=== PATIENT | female | born 1970 | race Caucasian/White ===

== ENCOUNTER 2023-04-02 07:41 | Emergency (ER) | payer BC, OTHER ==
[~2023-04-02] VITALS: Ht 162 cm; Wt 80.0 kg
[~2023-04-02 07:41] MED LIST: LEVOTHYROXINE; MDR10T
[2023-04-02] MEDS ORDERED: ONDANSETRON 4 MG ORAL DISSOLVE TABLET PO STA (07:59)
[2023-04-02] MEDS ORDERED: Tetanus/Diphtheria/Pertussis (Acell) ADULT Vaccine 0.5 ML IM ONE (08:00)
[2023-04-02] MEDS ORDERED: fentaNYL INJECTION 100 MCG/2 ML VIAL IM ONE (08:00)
[2023-04-02] MEDS ORDERED: LIDOCAINE PF 2% 5 ML VIAL INH ONE (08:00)
--- NOTE | 2023-04-02 08:41 | ED Integumentary General ---
General Chief Complaint: Skin/Wound Problems Stated Complaint: ABSCESS Nursing Triage Note: PT REPORTS SHE HAS A SORE ON HER LEFT LOWER BUTTOCKS. SHE REPORTS IT IS PAINFUL AND HARD TO SIT AND WALK. SHE WENT TO THE CLINIC LAST WEEK AND WAS GIVEN TOPICAL BACTROBAN. Source: patient (CURTIS ODONNELL MD) History of Present Illness Date Seen by Provider: Apr 02, 2023 Time Seen by Provider: 07:50 Initial Comments 52-year-old female patient with remote history of colon cancer without current medical problem presented POV with complaining of painful area in left gluteal area for the last 11 days. Patient was seen at urgent care 7 days and treated with Bactroban and without improvement of her condition and was seen at the same urgent care again 3 days ago and treated with oral antibiotic. Patient complaining of increasing pain and enlargement of the affected area without drainage of pus. Patient denies fever and chills, injury or injection at the gluteal area, history of MRSA. Patient rated her pain as a severe pain that getting worse with walking and sitting on left side. Patient rated her pain 10/10 at arrival to ER. (CURTIS ODONNELL MD) Allergies and Home Medications Allergies Coded Allergies: No Known Drug Allergies (Verified Allergy, Unknown, 12/20/07) Patient Home Medication List Home Medication List Reviewed: Yes (CURTIS ODONNELL MD) Amoxicillin/Potassium Clav (Amox Tr-K Clv 875-125 mg Tab) 875 Mg-125 Mg Tablet, 1 EACH PO BID Prescribed by: MAKENNA KRUEGER on 04/02/23 1149 Hydrocodone/Acetaminophen (Hydrocodone-Acetamin 5-325 mg) 5 Mg-325 Mg Tablet, 1 TAB PO Q6H PRN for PAIN-MODERATE (5-7) Prescribed by: MAKENNA KRUEGER on 04/02/23 1150 Medroxyprogesterone Acetate (Provera) 10 Mg Tab, (Reported) Entered as Reported by: SHAWN WELDON on 12/20/07 165 [Levothyroxine] , (Reported) Entered as Reported by: SHAWN WELDON on 12/20/071654 Review of Systems Review of Systems Constitutional: no symptoms reported EENTM: no symptoms reported Respiratory: no symptoms reported Cardiovascular: no symptoms reported Gastrointestinal: no symptoms reported Genitourinary: no symptoms reported Musculoskeletal: see HPI Skin: see HPI Psychiatric/Neurological: No Symptoms Reported Endocrine: No Symptoms Reported Hematologic/Lymphatic: No Symptoms Reported (CURTIS ODONNELL MD) All Other Systems Reviewed Negative Unless Noted: Yes (CURTIS ODONNELL MD) Past Klcsiok-Hzkdeo-Uqqgcx Hx Patient Social History Tobacco Use?: No Use of E-Cig and/or Vaping dev: No Substance use?: No Alcohol Use?: No Pt feels they are or have been: No (CURTIS ODONNELL MD) Immunizations Up To Date Influenza Vaccine Up-to-Date: No; Not Current (CURTIS ODONNELL MD) Past Medical History Surgery/Hospitalization HX: HX OF COLON CANCER Reproductive Disorders: No (CURTIS ODONNELL MD) Physical Exam Vital Signs Vital Signs - First Documented 04/02/23 07:46 Temp 36.8 Pulse 108 Resp 18 B/P (MAP) 128/82 (97) Pulse Ox 99 O2 Delivery Room Air (MAKENNA KRUEGER MD) Vital Signs Capillary Refill : Less Than 3 Seconds (CURTIS ODONNELL MD) General Appearance: mild distress, obese HEENT: PERRL/EOMI, normal ENT inspection Neck: non-tender, full range of motion Cardiovascular: normal peripheral pulses, regular rate, rhythm, no edema Respiratory: chest non-tender, lungs clear, normal breath sounds, no respiratory distress Gastrointestinal: non tender, soft Back: no CVA tenderness Extremities: no pedal edema Neurologic/Psychiatric: alert, oriented x 3 Skin: other (10 x 10 cm area of erythema in the mid left gluteal area with central fluctuation and severe tenderness) Skin Problem Character: abscess (CURTIS ODONNELL MD) Progress/Results/Core Measures Results/Orders My Orders Orders - MAKENNA KRUEGER MD Wound Culture (04/02/23 11:16) (MAKENNA KRUEGER MD) Medications Given in ED Current Medications Medications Dose Ordered Sig/Sindi Route Start Time Stop Time Status Last Admin Dose Admin Diphtheria/ Tetanus/Acell Pertussis 0.5 ml ONCE ONCE IM 04/02/23 08:00 04/02/23 08:01 DC 04/02/23 08:10 0.5 ML Fentanyl Citrate 50 mcg ONCE ONCE IM 04/02/23 08:00 04/02/23 08:01 DC 04/02/23 08:09 50 MCG Lidocaine HCl 5 ml ONCE ONCE INH 04/02/23 08:00 04/02/23 08:01 DC 04/02/23 08:11 5 ML Lidocaine HCl 10 ml STK-MED ONCE .ROUTE 04/02/23 10:50 04/02/23 10:53 DC 04/02/23 11:00 10 ML (MAKENNA KRUEGER MD) Vital Signs/I&O 04/02/23 04/02/23 07:46 09:50 Temp 36.8 36.6 Pulse 108 98 Resp 18 18 B/P (MAP) 128/82 (97) 137/83 (101) Pulse Ox 99 97 O2 Delivery Room Air (MAKENNA KRUEGER MD) Blood Pressure Mean: 97 Progress Progress Note : Time: 08:30 Progress Note Patient with large left gluteal abscess for 11 days with 2 urgent care visits without drainage of the abscess. Patient had a large abscess with central fluctuation without drainage of pus. Patient informed about needs for drainage of abscess and fentanyl IM, Zofran sublingual, Adacel was given and then area of abscess was anesthetized with 5 mL of 2% lidocaine. After few minutes, I tried to clean the area of the abscess with normal saline but patient did not tolerate touching the area and stated she could not tolerating the procedure and did not want to go anymore with the procedure under local anesthesia. I c onsidered conscious sedation or transferring patient to [facility] for evaluation and treatment by the surgeon. At 0835 ER physician at [facility] was consulted and suggested to consult on-call surgeon or use ketamine. At 0841 on-call surgeon Dr. Boggs was consulted and recommended to transfer patient ER to ER for the procedure. At 0 846 ER physician at [facility] Dr Krueger was consulted and accepted ER to ER transfer. Patient informed about plan of care and needs for transfer and she decided to go POV but then she changed her plan and decided to go by ambulance. IV line was started. (CURTIS ODONNELL MD) Progress Note : Progress Note 4 0: Patient was seen by me on arrival to the ER here and I have reexamined her and find normal breath sounds with normal cardiac exam. Left buttock with 8 x 8 cm area of induration with 4 x 4 centimeter area of fluctuance did speak with the patient about potential for moderate sedation and we have asked Dr. Boggs to come see the patient in the ER. He did see the patient in the ER and elected to do local only with I&D. He did do I&D of the wound and large amount of pus obtained and culture obtained by him. See his note for details. Patient is currently doing better. We will give [place] 5/325 1 tab p.o. now and I will write prescription for that as well as Augmentin and he will see her in office on Wednesday and patient to have outpatient dressing change at the ER at [facility] this weekend and then as needed. Discharged home with return precautions. Patient verbalized understanding instructions and agreement with plan. (MAKENNA KRUEGER MD) Departure Communication (Admissions) Time/Spoke to Admitting Phy: 08:46 Dr. Bowen ER physician at [facility] was consulted and accepted transfer from ER to ER at 0846. Time/Spoke to Consulting Phy: 08:41 On-call surgeon Dr. Boggs was consulted at 0841 and recommended to transfer christiano madrigal to ER for taking care of the abscess. (CURTIS ODONNELL MD) Impression Primary Impression: Abscess of buttock, left Disposition: 30 STILL A PATIENT Condition: Unchanged Admissions Decision to Admit Reason: Admit from ER (General) Decision to Admit/Date: Apr 02, 2023 Time/Decision to Admit Time: 09:00 (CURTIS ODONNELL MD) Transfer Method of Transfer: EMS (CURTIS ODONNELL MD) Departure-Patient Inst. Decision time for Depature: 11:44 (CURTIS ODONNELL MD) Decision time for Depature: 11:44 (MAKENNA KRUEGER MD) Referrals: RUCHI BOGGS DO NO,LOCAL PHYSICIAN (PCP) Primary Care Physician Patient Instructions: Abscess Incision and Drainage, Skin Abscess Add. Discharge Instructions: All discharge instructions reviewed with patient and/or family. Voiced understanding. You may replace top dressing but keep packing in place. If this falls out then cleaned the wound twice daily with fresh water using a shower sprayer. Follow- up with the ER at [facility] for packing change this and then with Dr. Boggs on [place] at his office. Take medications as directed. Return for worse pain, swelling, fever, vomiting or other concerns as needed. If you are not taking the prescribed pain medicine then you may take Tylenol/acetaminophen 1000 mg every 6-8 hours as needed for pain. Do not take both at the same time as they both have acetaminophen in them. You may also take ibuprofen 600 mg every 8 hours as needed for pain with either the prescribed pain medicine or with Tylenol/acetaminophen to improve pain control. Scripts Amoxicillin/Potassium Clav (Amox Tr-K Clv 875-125 mg Tab) 875 Mg-125 Mg Tablet 1 EACH PO BID for 10 Days, #20 TAB Prov: MAKENNA KRUEGER MD 04/02/23 Hydrocodone/Acetaminophen (Hydrocodone-Acetamin 5-325 mg) 5 Mg-325 Mg Tablet 1 TAB PO Q6H PRN for PAIN-MODERATE (5-7) for 7 Days, #10 TAB 0 Refills Prov: MAKENNA KRUEGER MD 04/02/23 CURTIS ODONNELL MD Apr 02, 2023 08:41 MAKENNA KRUEGER MD Apr 02, 2023 11:47
[2023-04-02] MEDS ORDERED: LIDOCAINE 1% INJ 10 ML VIAL ONE (10:50)
--- NOTE | 2023-04-02 11:27 | Consultation - Surgery ---
MOE DE LEON 04/02/23 1127: History of Present Illness History of Present Illness Patient Consulted On(jason/time) 04/02/23 11:20 Date Seen by Provider: Apr 02, 2023 Time Seen by Provider: 10:40 Reason for Visit: Sugery consultation for abscess History of Present Illness This is a 52-year-old female with hx of colon cancer who presented to the ED with abscess on the left lower glute. Patient stated that the lump appeared around the middle of last week with a dull pain. She went to a walk in clinic and was given a topical cream & abx for it. The treatment did not help and the lump progressively became larger & more painful. She was unable to tolerate it anymore which prompted her to come into the ED. The abscess is extremely painful and nothing has helped with the pain. Walking, sitting/laying on it, and touching it makes the pain worse. Describes the pain as a 10/10 and is radiating up the left glute. The abscess is erythemic, swollen, and fluctuant. No drainage of pus. Patient denies any fever, chills, nausea, vomiting. 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 Allergies and Home Medications Allergies Coded Allergies: No Known Drug Allergies (Verified Allergy, Unknown, 12/20/07) Patient Home Medication List Amoxicillin/Potassium Clav (Amox Tr-K Clv 875-125 mg Tab) 875 Mg-125 Mg Tablet, 1 EACH PO BID Prescribed by: MAKENNA KRUEGER on 04/02/23 1149 Hydrocodone/Acetaminophen (Hydrocodone-Acetamin 5-325 mg) 5 Mg-325 Mg Tablet, 1 TAB PO Q6H PRN for PAIN-MODERATE (5-7) Prescribed by: MAKENNA KRUEGER on 04/02/23 1150 Medroxyprogesterone Acetate (Provera) 10 Mg Tab, (Reported) Entered as Reported by: SHAWN WELDON on 12/20/07 1654 [Levothyroxine] , (Reported) Entered as Reported by: SHAWN WELDON on 12/20/07 1655 Past Qlutwai-Fyilrt-Houtzg Hx Patient Social History Alcohol Use?: No Immunizations Up To Date Tetanus Booster (TDap): Unknown (DPT vaccince 04/02/2023) Surgeries History of Surgeries: Yes (Surgery for colon cancer) Surgeries: Abdominal Reproductive System Hx Reproductive Disorders: No Gastrointestinal History of Gastrointestinal Di: Yes (Hx of colone cancer requiring surgery & chemo) Family Medical History Significant Family History: Cancer (Father had colon cancer, ) Review of Systems-General Constitutional: No chills, No fever EENTM: no symptoms reported; No blurred vision Respiratory: No cough, No short of breath Cardiovascular: No chest pain, No edema Gastrointestinal: No abdominal pain, No vomiting Genitourinary: No dysuria, No frequency Musculoskeletal: No back pain; other (Pain of left glute) Skin: see HPI; No change in color; other Psychiatric/Neurological: Denies Headache, Denies Weakness Physical Exam-General Problems Physical Exam Vital Signs Vital Signs - First Documented 04/02/23 07:46 Temp 36.8 Pulse 108 Resp 18 B/P (MAP) 128/82 (97) Pulse Ox 99 O2 Delivery Room Air Capillary Refill : Less Than 3 Seconds General Appearance: WD/WN, mild distress Eyes: Bilateral Eye Normal Inspection, Bilateral Eye PERRL, Bilateral Eye EOMI HEENT: PERRL/EOMI Neck: non-tender, supple Respiratory: normal breath sounds, no respiratory distress, no accessory muscle use Cardiovascular: regular rate, rhythm, no edema Gastrointestinal: non tender, soft Extremities: inflammation (Abscess left gluteal region) Neurologic/Psychiatric: alert, oriented x 3 Skin: normal color, warm/dry Lymphatic: no adenopathy Assessment/Plan Assessment/Plan Assessment/Plan Abscess of left gluteal region Pain management Drainage of abscess today Culture of abscess RUCHI BOGGS DO 04/02/23 1605: History of Present Illness History of Present Illness History of Present Illness 52 year old female with abscess left buttock. Started last week and was on abx and continued to worsen. Dull pain. Not improving. Having severe pain moves up left buttock. No drainage. Allergies and Home Medications Allergies Coded Allergies: No Known Drug Allergies (Verified Allergy, Unknown, 12/20/07) Patient Home Medication List Home Medication List Reviewed: Yes Amoxicillin/Potassium Clav (Amox Tr-K Clv 875-125 mg Tab) 875 Mg-125 Mg Tablet, 1 EACH PO BID Prescribed by: MAKENNA KRUEGER on 04/02/23 1149 Hydrocodone/Acetaminophen (Hydrocodone-Acetamin 5-325 mg) 5 Mg-325 Mg Tablet, 1 TAB PO Q6H PRN for PAIN-MODERATE (5-7) Prescribed by: MAKENNA KRUEGER on 04/02/23 1150 Medroxyprogesterone Acetate (Provera) 10 Mg Tab, (Reported) Entered as Reported by: SHAWN WELDON on 12/20/07 1654 [Levothyroxine] , (Reported) Entered as Reported by: SHAWN WELDON on 12/20/07 1655 Past Ovfmhti-Nltdyu-Nbjtge Hx Reviewed Nursing Assessment Reviewed/Agree w Nursing PMH: Yes Family Medical History Significant Family History: Cancer (Father had colon cancer, ) Review of Systems-General Constitutional: No chills, No fever EENTM: No blurred vision, No double vision Respiratory: No cough, No short of breath Cardiovascular: No chest pain, No edema Gastrointestinal: No abdominal pain, No nausea, No vomiting Genitourinary: No decreased output, No discharge Musculoskeletal: No back pain; other (Pain of left glute) Skin: change in color; No change in hair/nails Psychiatric/Neurological: Denies Anxiety, Denies Depressed, Denies Emotional Problems All Other Systems Reviewed Negative Unless Noted: Yes (Negative excepted noted.) Physical Exam-General Problems Physical Exam General Appearance: WD/WN, mild distress, other (anxious) HEENT: PERRL/EOMI, normal ENT inspection Neck: non-tender, supple Respiratory: chest non-tender, no respiratory distress, no accessory muscle use Cardiovascular: no JVD, tachycardia Gastrointestinal: non tender, soft Back: normal inspection, no CVA tenderness Extremities: non-tender, normal inspection Neurologic/Psychiatric: alert, oriented x 3 Skin: warm/dry, other (erythema and fluctuance at left buttock) Lymphatic: no adenopathy Assessment/Plan Assessment/Plan Assessment/Plan left buttock abscess Pain management Drainage of abscess today Culture of abscess Abx Disscussed risks and beneftis of incision and drainage she understands and wishes to proceed. Dressing change daily. Irrigate and pack. Boggs Wednesday. PROCEDURE: INCISION AND DRAINAGE LEFT BUTTOCK ABSCESS. Left buttock prepped and draped in sterile fashion. Local anaesthetic infused. 15 blade scalpel cut through skin and subcutaneous tissue. Purulent material erupted. Culture obtained. Wound irrigated. Wound packed with iodoform. Sterile dressing applied. Patient tolerated procedure. Supervisory-Addendum Brief Verification & Attestation Participated in pt care: history, MDM, physical Personally performed: exam, history, MDM, supervision of care Care discussed with: Medical Student Procedures: performed Procedure type: I&D (performed by me) Results interpretation: Verified all documentation Verification and Attestation of Medical Student E/M Service A medical student performed and documented this service in my presence. I reviewed and verified all information documented by the medical student and made modifications to such information, when appropriate. I personally performed the physical exam and medical decision making. Ruchi Boggs, Apr 02, 2023,16:06 MOE DE LEON Apr 02, 2023 11:27 RUCHI BOGGS DO Apr 02, 2023 16:05
[2023-04-02] MEDS ORDERED: HYDROcodone/ACETAMINOPHEN 5 MG/325 MG TABLET PO ONE (11:45)
[2023-04-02] MEDS ORDERED: ACHD5005 PO (11:49)
[2023-04-02] MEDS ORDERED: AMOX1TAB12 PO (11:49)
[2023-04-02 12:00] VITALS: BP 137/92
[2023-04-04] MEDS ORDERED: CLIN-144 PO (15:28)
== END 2023-04-02 11:57 | disposition still patient (30) ==
LOC: EDUNIT# 07:41 → ER FS 07:44 → ER 11:57
DX: L02.31 Cutaneous abscess of buttock (principal); E66.9 Obesity, unspecified; Z23 Encounter for immunization; Z68.30 Body mass index [BMI] 30.0-30.9, adult
CPT/HCPCS: 10061; 87070; 87077; 87186; 87205; 90715

== ENCOUNTER 2023-04-03 15:27 | Emergency (ER) | payer BC ==
[~2023-04-03] VITALS: Ht 165.1 cm; Wt 78.9 kg
[~2023-04-03 15:27] MED LIST changes: +ACHD5005 PO; +AMOX1TAB12 PO
[2023-04-03 15:45] VITALS: BP 123/84
--- NOTE | 2023-04-03 15:49 | ED Suture Removal/Wound Check ---
Suture/Wound Re-check Suture Removal/Wound Recheck : Suture Removal/Wound Recheck: Packing removed Progress Wound appears to be healing well. There is some central induration without any fluctuance. Mild amount of purulence came out of the wound when the packing was removed. I am unable to express any more purulence. Packing will be replaced as evidence does not support it and causes more pain for the patient. She is discharged in stable condition Skin Exam: other (As described in progress note) Physical Exam Vital Signs Capillary Refill : General Appearance: WD/WN, no apparent distress Departure Impression Primary Impression: Abscess of buttock, left Disposition: 01 HOME, SELF-CARE Condition: Stable Departure-Patient Inst. Referrals: NO,LOCAL PHYSICIAN (PCP/Family) Primary Care Physician Patient Instructions: Wound Care (DC) EDIE TROTTER DO Apr 03, 2023 15:49
[2023-04-04] MEDS ORDERED: CLIN-144 PO (15:28)
== END 2023-04-03 16:00 | disposition home or self-care (01) ==
LOC: EDUNIT# 15:27 → ER FS 15:28
DX: L02.31 Cutaneous abscess of buttock (principal)